=== PATIENT | female | born 1980 | race Caucasian/White ===

== ENCOUNTER 2019-03-12 11:30 | Outpatient (CLI) | payer OTHER ==
[~2019-03-12] VITALS: Ht 157.5 cm; Wt 83.0 kg
[2019-03-12] MEDS ORDERED: ETON68IM3 SQ (15:35)
== END 2019-03-12 15:54 | disposition home or self-care (01) ==
LOC: PREOP 11:30 → EDUNIT# 14:30 → PREOP 15:54
PROVIDERS: ATTEND Urology
DX: Z01.818 Encounter for other preprocedural examination (principal)

== ENCOUNTER 2019-03-17 07:32 | Day surgery (SDC) | payer OTHER ==
[~2019-03-17] VITALS: Ht 157.5 cm; Wt 83.0 kg
[2019-03-17] VITALS (9 sets, daily range): BP systolic 92–120; BP diastolic 54–85
[~2019-03-17 07:32] MED LIST: ETON68IM3 SQ
--- OUTSIDE RECORDS SUMMARY | 2019-03-17 07:37 | XMS REPORT | Clinical Summary ---
Author Author Admin, DIMAS Organization [facility] Address Unknown Phone Unavailable Allergies, Adverse Reactions, Alerts Allergy Name Reaction Description Start Date Severity Status Provider AMPICILLIN Critical Active Jud Baez TORADOL Critical Active Jud Baez ROCEPHIN Critical Active Chandan Del Valle DO SULFA Critical Active Chandan Del Valle DO IBUPROFEN Critical Active Chandan Del Valle DO ASPIRIN Critical Active Chandan Del Valle DO Conditions or Problems Problem Name Problem Code Onset Date Status Entry Date Provider Comment Standard Description Annotate FH DIABETES V18.0 Resolved Francisco Javier Wang MD Family history of diabetes mellitus FH DEPRESSION V17.0 Resolved Francisco Javier Wang MD Family history of psychiatric condition FREQUENCY, URINARY 788.41 Resolved Francisco Javier Wang MD Urinary frequency DYSURIA 788.1 Resolved Francisco Javier Wang MD Dysuria URINARY TRACT INFECTION, ACUTE 599.0 Resolved Francisco Javier Wang MD Urinary tract infection, site not specified HEADACHE, CHRONIC 784.0 Active Francisco Javier Wang MD Headache ACUTE PHARYNGITIS 462 Resolved Francisco Javier Wang MD Acute pharyngitis CANDIDIASIS, VAGINAL 112.1 Resolved Francisco Javier Wang MD Candidiasis of vulva and vagina DIETARY SURVEILLANCE AND COUNSELING V65.3 Active Tiffanie MILES Dietary surveillance and counseling EXCERCISE COUNSELING V65.41 Active Tiffanie MILES Exercise counseling DYSURIA 788.1 Resolved Francisco Javier Wang MD Dysuria ABSCESS, TOOTH 522.5 Resolved Francisco Javier Wang MD Periapical abscess without sinus Abdominal pain, generalized 789.07 Active Francisco Javier Wang MD Abdominal pain, generalized FH DIABETES ICD-V18.0 Inactive Francisco Javier Wang MD FH DEPRESSION ICD-V17.0 Inactive Francisco Javier Wang MD FREQUENCY, URINARY ICD-788.41 Inactive Francisco Javier Wang MD DYSURIA ICD-788.1 Inactive Francisco Javier Wang MD 09/08 URINARY TRACT INFECTION, ACUTE ICD-599.0 Inactive Francisco Javier Wang MD ACUTE PHARYNGITIS ICD-462 Inactive Francisco Javier Wang MD CANDIDIASIS, VAGINAL ICD-112.1 Inactive Francisco Javier Wang MD DYSURIA ICD-788.1 Inactive Francisco Javier Wang MD 07/07 ABSCESS, TOOTH ICD-522.5 Inactive Francisco Javier Wang MD Medication List Medication Instructions Start Date Stop Date Generic Name NDC Status Provider Patient Instruction REGLAN 10 MG TAB 1 po TID PRN Nausea METOCLOPRAMIDE HCL 11194377268 Active Francisco Javier Wang MD Active NEXPLANON 68 MG IMPL ETONOGESTREL 21093129094 Active Francisco Javier Wang MD Active CLINDAMYCIN HCL 300 MG CAPS TAKE ONE CAPSULE BY MOUTH 4 TIMES A DAILY FOR 10 DAYS CLINDAMYCIN HCL 74142966425 No Longer Active Francisco Javier Wang MD Active HYDROCODONE-ACETAMINOPHEN 5-325 MG TABS 1 po q 4hr PRN Pain HYDROCODONE-ACETAMINOPHEN 43115429890 Active Alphonse Alvarez MD Active PHENTERMINE HCL 37.5 MG TABS take one tab po daily PHENTERMINE HCL 88920664603 No Longer Active Alphonse Alvarez MD Active AZITHROMYCIN 250 MG TABS take 2 tabs po day one then 1 tab po days 2-5 12/30 AZITHROMYCIN 70665490649 No Longer Active Tiffanie Love PA Active FLUCONAZOLE 150 MG TABS take one tab po daily x 1 FLUCONAZOLE 52246475430 No Longer Active Tiffanie Love PA Active CIPROFLOXACIN HCL 250 MG TABS take one tab po bid x 7 days 09/08 CIPROFLOXACIN HCL 35365626164 No Longer Active Francisco Javier Wang MD Active FLUCONAZOLE 150 MG TABS take one tab po daily x 1 FLUCONAZOLE 66287416812 No Longer Active Francisco Javier Wang MD Active CIPRO 500 MG TAB 1 tablet by mouth twice daily CIPROFLOXACIN HCL 43239844403 No Longer Active Tiffanie Love PA Active CIPRO 500 MG TAB 1 tablet by mouth twice daily CIPRO 500 MG TAB 965534 CIPROFLOXACIN HCL Inactive FLUCONAZOLE 150 MG TABS take one tab po daily x 1 FLUCONAZOLE 150 MG TABS 636674 FLUCONAZOLE Inactive CIPROFLOXACIN HCL 250 MG TABS take one tab po bid x 7 days 09/08 CIPROFLOXACIN HCL 250 MG TABS 964673 CIPROFLOXACIN HCL Inactive FLUCONAZOLE 150 MG TABS take one tab po daily x 1 FLUCONAZOLE 150 MG TABS 191637 FLUCONAZOLE Inactive AZITHROMYCIN 250 MG TABS take 2 tabs po day one then 1 tab po days 2-5 12/30 AZITHROMYCIN 250 MG TABS 6966096 AZITHROMYCIN Inactive PHENTERMINE HCL 37.5 MG TABS take one tab po daily PHENTERMINE HCL 37.5 MG TABS 384190 PHENTERMINE HCL Inactive CLINDAMYCIN HCL 300 MG CAPS TAKE ONE CAPSULE BY MOUTH 4 TIMES A DAILY FOR 10 DAYS CLINDAMYCIN HCL 300 MG CAPS 075922 CLINDAMYCIN HCL Inactive Vital Signs Date Name Value Unit Range Description blood pressure, diastolic - 8462-4 95 mm[Hg] BP plummer blood pressure, systolic - 8480-6 137 mm[Hg] BP sys height E&M - 8302-2 62 [in_us] Bdy height pulse rate E&M - 8867-4 74 /min Heart rate temperature E&M 98.8 [degF] Body temperature weight E&M - 3141-9 189.31 [lb_av] Weight Measured blood pressure, diastolic - 8462-4 84 mm[Hg] BP plummer blood pressure, systolic - 8480-6 145 mm[Hg] BP sys height E&M - 8302-2 62 [in_us] Bdy height pulse rate E&M - 8867-4 105 /min Heart rate temperature E&M 99.1 [degF] Body temperature weight E&M - 3141-9 187 [lb_av] Weight Measured Encounters Code Encounter Date Provider Facility CPT-83225 Level 3 Est. Patient 11:19:23 CDT Francisco Javier Wang MD [facility] CPT-75538 Level 3 Est. Patient 09:36:55 CDT Alphonse Alvarez MD [facility] CPT-49123 Level 3 Est. Patient 09:05:05 CDT Tiffanie Love [facility] CPT-76734 Level 3 Est. Patient 09:54:44 WEB PRODUCTION MANAGER Tiffanie Love [facility] CPT-23054 Level 3 Est. Patient 14:27:49 CDT Francisco Javier Wang MD [facility] CPT-98001 Level 3 Est. Patient 11:21:54 CDT Tiffanie Love [facility] CPT-42472 Level 3 Est. Patient 15:49:41 WEB PRODUCTION MANAGER Chandan Del Valle DO [facility] Procedures Code Procedure Name Date Entry Date Standard Description CPT-96957 Urine Dip (Floor Use Only) 09:54:44 WEB PRODUCTION MANAGER CPT-93070 Urine Dip (Floor Use Only) 15:46:19 CDT
--- OUTSIDE RECORDS SUMMARY | 2019-03-17 07:37 | XMS REPORT | Clinical Summary ---
Author Author Admin, DIMAS Organization [facility] Address Unknown Phone Unavailable Allergies, Adverse Reactions, Alerts Allergy Name Reaction Description Start Date Severity Status Provider AMPICILLIN Critical Active Jud Baez TORADOL Critical Active Jud Baez ROCEPHIN Critical Active Chandan Del Valle DO SULFA Critical Active Chandan Echevarria Eligio DO IBUPROFEN Critical Active Chandan Del Valle [...] 1 po TID PRN Nausea METOCLOPRAMIDE HCL 73103368859 Active Francisco Javier Wang MD Active NEXPLANON 68 MG IMPL ETONOGESTREL 55831669518 Active Francisco Javier Wang MD Active CLINDAMYCIN HCL 300 MG CAPS TAKE ONE CAPSULE BY MOUTH 4 TIMES A DAILY FOR 10 DAYS CLINDAMYCIN HCL 15460455651 No Longer Active Francisco Javier Wang MD Active HYDROCODONE-ACETAMINOPHEN 5-325 MG TABS 1 po q 4hr PRN Pain HYDROCODONE-ACETAMINOPHEN 63407877411 Active Alphonse Alvarez MD Active PHENTERMINE HCL 37.5 MG TABS take one tab po daily PHENTERMINE HCL 61325256846 No Longer Active Alphonse Alvarez MD Active AZITHROMYCIN 250 MG TABS take 2 tabs po day one then 1 tab po days 2-5 12/30 AZITHROMYCIN 73847144149 No Longer Active Tiffanie Love PA Active FLUCONAZOLE 150 MG TABS take one tab po daily x 1 FLUCONAZOLE 77088926518 No Longer Active Tiffanie Love PA Active CIPROFLOXACIN HCL 250 MG TABS take one tab po bid x 7 days 09/08 CIPROFLOXACIN HCL 37982663422 No Longer Active Francisco Javier Wang MD Active FLUCONAZOLE 150 MG TABS take one tab po daily x 1 FLUCONAZOLE 59399518661 No Longer Active Francisco Javier Wang MD Active CIPRO 500 MG TAB 1 tablet by mouth twice daily CIPROFLOXACIN HCL 85470535616 No Longer Active Tiffanie Love PA Active CIPRO 500 MG TAB 1 tablet by mouth twice daily CIPRO 500 MG TAB 114219 CIPROFLOXACIN HCL Inactive FLUCONAZOLE 150 MG TABS take one tab po daily x 1 FLUCONAZOLE 150 MG TABS 499657 FLUCONAZOLE Inactive CIPROFLOXACIN HCL 250 MG TABS take one tab po bid x 7 days 09/08 CIPROFLOXACIN HCL 250 MG TABS 266359 CIPROFLOXACIN HCL Inactive FLUCONAZOLE 150 MG TABS take one tab po daily x 1 FLUCONAZOLE 150 MG TABS 166138 FLUCONAZOLE Inactive AZITHROMYCIN 250 MG TABS take 2 tabs po day one then 1 tab po days 2-5 12/30 AZITHROMYCIN 250 MG TABS 4914148 AZITHROMYCIN Inactive PHENTERMINE HCL 37.5 MG TABS take one tab po daily PHENTERMINE HCL 37.5 MG TABS 961488 PHENTERMINE HCL Inactive CLINDAMYCIN HCL 300 MG CAPS TAKE ONE CAPSULE BY MOUTH 4 TIMES A DAILY FOR 10 DAYS CLINDAMYCIN HCL 300 MG CAPS 101860 CLINDAMYCIN HCL Inactive Vital Signs Date Name [...] Measured Encounters Code Encounter Date Provider Facility CPT-70716 Level 3 Est. Patient 11:19:23 CDT Francisco Javier Wang MD [facility] CPT-74703 Level 3 Est. Patient 09:36:55 CDT Alphonse Alvarez MD [facility] CPT-85540 Level 3 Est. Patient 09:05:05 CDT Tiffanie Love [facility] CPT-03394 Level 3 Est. Patient 09:54:44 RUBBER PRESS TENDER Tiffanie Love [facility] CPT-76138 Level 3 Est. Patient 14:27:49 CDT Francisco Javier Wang MD [facility] CPT-96133 Level 3 Est. Patient 11:21:54 CDT Tiffanie Love [facility] CPT-70935 Level 3 Est. Patient 15:49:41 RUBBER PRESS TENDER Chandan Del Valle DO [facility] Procedures Code Procedure Name Date Entry Date Standard Description CPT-79462 Urine Dip (Floor Use Only) 09:54:44 RUBBER PRESS TENDER CPT-08592 Urine Dip (Floor Use Only) 15:46:19 CDT
--- NOTE | 2019-03-17 07:50 | Progress Note-Pre Operative ---
Pre-Operative Progress Note H&P Reviewed The H&P was reviewed, patient examined and no changes noted. Date Seen by Provider: March 17, 2019 Time Seen by Provider: 07:50 Date H&P Reviewed: March 17, 2019 Time H&P Reviewed: 07:50 Pre-Operative Diagnosis: RT URETERAL AND RENAL STONES NELL OTERO MD March 17, 2019 07:50
[2019-03-17] MEDS ORDERED: LEVOFLOXACIN 250 MG/50 ML IVPB 50 ML ONE (07:56)
[2019-03-17] MEDS: LACTATED RINGERS 1,000 ML IV PRN ×2 (08:00→10:12)
[2019-03-17] MEDS ORDERED: LEVOFLOXACIN 250 MG/50 ML IVPB 50 ML IV ONE (08:15)
[2019-03-17] MEDS ORDERED: CATHETER FLUSH 10 ML SYR IV PRN (08:15)
[2019-03-17] MEDS ORDERED: LIDOCAINE PF 2% 5 ML (XYLOCAINE) VIAL ONE (08:29)
[2019-03-17] MEDS ORDERED: DEXAMETHASONE 10 MG/ML (DECADRON) 1 ML VIAL ONE (08:29)
[2019-03-17] MEDS ORDERED: proPOfol 200 MG/20 ML (DIPRIVAN) VIAL IV ONE (08:29)
[2019-03-17] MEDS ORDERED: MIDAZOLAM 2 MG/2 ML (VERSED) VIAL ONE (08:29)
[2019-03-17] MEDS ORDERED: ONDANSETRON 4 MG/2 ML (SDV) Z0FRAN ONE ×2 (08:29→11:57)
[2019-03-17] MEDS ORDERED: SEVOFLURANE (ULTANE) 15 ML INHAL SOLN ONE (08:29)
[2019-03-17] MEDS ORDERED: fentaNYL INJECTION 100 MCG/2 ML AMP ONE (08:29)
--- NOTE | 2019-03-17 09:15 | Diagnostic Imaging Report ---
INDICATION: Flank pain, followup renal stones. COMPARISON: None available. FINDINGS: There is a 1.3 cm stone projected over the lower pole of the right kidney. Additional more central 8 mm stone is present near the lower pole of the right kidney, could be within the renal hilum. There are a few tiny 0.3 cm mineralization overlying the left renal fossa. Scattered pelvic phleboliths are noted. Nonobstructive bowel gas pattern. Normal regional skeleton. IMPRESSION: Probable bilateral renal stones, largest measuring up to 1.3 cm on the right. If there is concern for obstruction, CT of the abdomen and pelvis without contrast is advised for further assessment. Dictated by: Dictated on workstation # [id number]
--- NOTE | 2019-03-17 10:27 | Progress Note-Post Operative ---
Post-Operative Progess Note Surgeon (s)/Supervisor Type Photography (s) Surgeon NELL OTERO MD Supervisor Type Photography: NONE Pre-Operative Diagnosis RT URETERAL AND RENAL STONES Post-Operative Diagnosis SAME Procedure & Operative Findings Date of Procedure 03/17/19 Procedure Performed/Findings RT ESWL FOR URETERAL STONE Anesthesia Type GENERAL Estimated Blood Loss Estimated blood loss (mL): NONE Specimens/Packing Specimens Removed NONE Packing: NONE NELL OTERO MD March 17, 2019 10:27
--- NOTE | 2019-03-17 10:29 | Discharge Inst-Urology ---
Discharge Inst-Urology Discharge Medications New, Converted, or Re-newed RX: RX on Chart Patient Instructions/Follow Up Plan Please make appointment to been seen in office in 2 weeks. KUB prior to it KUB on way home Post ESWL instructions Increase oral fluids for 48 hours and then as needed. Diet and Activity as tolerated. If questions or concerns contact your physician Or seek help at emergency department. NELL OTERO MD March 17, 2019 10:29
[2019-03-17] MEDS ORDERED: FUROSEMIDE 40 MG/4 ML INJ (LASIX) ONE (11:29)
[2019-03-17] MEDS ORDERED: HYDR-3870 PO (12:13)
[2019-03-17] MEDS ORDERED: TAMS0.4C98 PO (12:13)
[2019-03-17] MEDS ORDERED: NITR-65 PO (12:13)
--- NOTE | 2019-03-17 12:21 | Anesthesia-General Post-Op ---
General Patient Condition Mental Status/LOC: Same as Preop Cardiovascular: Satisfactory Nausea/Vomiting: Absent Respiratory: Satisfactory Pain: Controlled Complications: Absent Post Op Complications Complications None Follow Up Care/Instructions Patient Instructions None needed. Anesthesia/Patient Condition Patient Condition Patient is doing well, no complaints, stable vital signs, no apparent adverse anesthesia problems. No complications reported per nursing. DANIELLE MAC CRNA March 17, 2019 12:21
[2019-03-17] MEDS ORDERED: ONDANSETRON 4 MG/2 ML (SDV) Z0FRAN IVP PRN (12:45)
--- NOTE | 2019-03-17 14:21 | Diagnostic Imaging Report ---
EXAMINATION: Supine abdomen at 1:00 p.m. INDICATION: Post ESWL. Two views were obtained. FINDINGS: The exam performed earlier today at 7:59 a.m. noted a 13 mm and 8 MM calcification overlying the right kidney. In the interval since the prior exam, the larger of the two calcifications has been fragmented. The calcific fragments continues to overlie the right renal contour. The more medial and smaller of the two calcific fragments is unchanged in appearance. The 3 mm calcific density overlying the left kidney seen previously is again evident and no different. The suspected phleboliths low in the pelvis are also unchanged. IMPRESSION: There has been fragmentation of the larger of the two calculi overlying the right kidney. The overall appearance of the abdomen has not changed significantly otherwise. Dictated by: Dictated on workstation # [id number]
--- NOTE | 2019-04-03 18:59 | OPERATIVE REPORT ---
DATE OF SERVICE: 03/17/2019 PREOPERATIVE DIAGNOSES: 1. Right ureteropelvic junction stone. 2. Right lower pole renal stone. POSTOPERATIVE DIAGNOSES: 1. Right ureteropelvic junction stone. 2. Right lower pole renal stone. OPERATION PERFORMED: Right ESWL of the ureteropelvic junction stone. SURGEON: Mau Otero MD. ANESTHESIA: General. COMPLICATIONS: None. DESCRIPTION OF PROCEDURE: Under satisfactory general anesthesia, the patient in supine position on the ESWL table, we localized the right UPJ stone. Delivered shocks at kV of 4. A total of 3000 shocks fragmented the stone well. We did not address the lower pole stone because we want to delivere as much shocks to the other stone lower pole stone and also her insurance does not allow more than one stone to be blasted in a year. The patient received 40 mg of Lasix, 30 mg of Toradol IV at the end of procedure. She tolerated the procedure and anesthesia well and was sent to recovery room in stable condition. Job ID: [id number] DocumentID: [id number] Dictated Date: 04/03/2019 09:25:24 Hotel Or Motel Receptionist Date: 04/03/2019 18:59:26 Dictated By: MAU OTERO MD
== END 2019-03-17 13:15 | disposition home or self-care (01) ==
LOC: SDC 07:32
PROVIDERS: ATTEND Urology
DX: N20.2 Calculus of kidney with calculus of ureter (principal); M35.00 Sjogren syndrome, unspecified; G43.909 Migraine, unspecified, not intractable, without status migrainosus; Z79.899 Other long term (current) drug therapy
CPT/HCPCS: 74018; 84703; 87081

== ENCOUNTER → 2019-04-21 | Outpatient (CLI) | payer OTHER ==
[~2019-04-21] VITALS: Ht 157.5 cm; Wt 83.0 kg
[~2019-04-21] MED LIST changes: +CETI10TA17 PO; +HYDR-3870 PO; +NITR-65 PO; +TAMS0.4C98 PO
== END | disposition home or self-care (01) ==
LOC: PREOP 13:10
PROVIDERS: ATTEND Urology
DX: Z01.818 Encounter for other preprocedural examination (principal)

== ENCOUNTER 2019-04-22 07:02 | Day surgery (SDC) | payer OTHER ==
[~2019-04-22] VITALS: Ht 157.5 cm; Wt 86.2 kg
[2019-04-22] VITALS (10 sets, daily range): BP systolic 95–119; BP diastolic 58–68
--- NOTE | 2019-04-22 07:03 | Progress Note-Pre Operative ---
Pre-Operative Progress Note H&P Reviewed The H&P was reviewed, patient examined and no changes noted. Date Seen by Provider: Apr 22, 2019 Time Seen by Provider: 07:32 Date H&P Reviewed: Apr 22, 2019 Time H&P Reviewed: 07:32 Pre-Operative Diagnosis: RT PROXIMAL URETERAL (2) AND RENAL (1) STONES NELL OTERO MD Apr 22, 2019 07:03
--- OUTSIDE RECORDS SUMMARY | 2019-04-22 07:10 | XMS REPORT | Continuity of Care Document ---
Author Organization Unknown Address Unknown Allergies Active Description Code Type Severity Reaction Onset Reported/Identified Relationship to Patient Clinical Status Yes ASPIRIN ASPIRIN SEVERE Yes CEFTRIAXONE CEFTRIAXONE SEVERE Yes IBUPROFEN IBUPROFEN SEVERE Yes PAIN RELIEVER PAIN RELIEVER SEVERE Yes PENICILLIN G POTASSIUM PENICILLIN G POTASSI SEVERE Yes ASPIRIN SEVERE DERMATOLOGICAL - TESHA Yes ASPIRIN SEVERE SEVERE Yes CEFTRIAXONE SEVERE DERMATOLOGICAL - TESHA Yes CEFTRIAXONE SEVERE SEVERE Yes IBUPROFEN SEVERE DERMATOLOGICAL - TESHA Yes IBUPROFEN SEVERE SEVERE Yes PAIN RELIEVER SEVERE DERMATOLOGICAL - TESHA Yes PAIN RELIEVER SEVERE SEVERE Yes PENICILLIN G POTASSIUM SEVERE SEVERE Yes PENICILLIN G POTASSIUM SEVERE SWOLLEN LIPS Yes aspirin [id number] Drug Allergy Severe HIVES, LIP SWEL 03/12/2019 Yes ibuprofen [id number] Drug Allergy Severe HIVES, LIP SWEL 03/12/2019 Yes Sulfa (Sulfonamide Antibiotics) Z834265374 Drug Allergy Moderate N/V, HIVES 03/12/2019 Yes ceftriaxone X976088925 Drug Allergy Mild N/V 03/12/2019 Yes Penicillins Z042638866 Drug Allergy Mild GI UPSET, N/V 03/12/2019 Yes Cephalosporins Q355874356 Drug Allergy Unknown N/A 03/12/2019 Medications There is no data. Problems Date Dx Coded Attending Type Code Diagnosis Diagnosed By 03/07/2019 Richard Lindsey 592.1 CALCULUS OF URETER 03/07/2019 Richard Lindsey 599.0 URINARY TRACT INFECTION, SITE NOT SPECIFIED 03/07/2019 Richard Lindsey N20.1 CALCULUS OF URETER 03/07/2019 Richard Lindsey N39.0 URINARY TRACT INFECTION, SITE NOT SPECIFIED 03/12/2019 MAU OTERO MD Ot Z01.818 ENCOUNTER FOR OTHER PREPROCEDURAL EXAMIN 04/07/2019 MAU OTERO MD Ot G43.909 MIGRAINE, UNSP, NOT INTRACTABLE, WITHOUT 04/07/2019 MAU OTERO MD Ot M35.00 SICCA SYNDROME, UNSPECIFIED 04/07/2019 MAU OTERO MD Ot N20.2 CALCULUS OF KIDNEY WITH CALCULUS OF URET 04/07/2019 MAU OTERO MD Ot Z79.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 Results Test Result Range Sed Rate - 11/28/16 12:19 Sed Rate 27 mm/hr 9-15 Urine Culture - 03/07/19 18:20 PRELIM CULTURE RESULTS 20,000-50,000 Gram Positive Mixed Monique. FINAL CULTURE RESULTS 20,000-50,000 Mixed Monique [id number] Skin Contaminant [id number] Further Workup done CULTURE SOURCE voided urine/er collection Methicillin resistant Staphylococcus aureus (MRSA) screening culture - 03/17/19 07:50 Methicillin resistant Staphylococcus aureus (MRSA) screening culture NEG NRG Stone Analysis - 04/10/19 08:38 Stone Analysis Sent to Reference Lab Encounters ACCT No. Visit Date/Time Discharge Status Pt. Type Provider Facility Loc./Unit Complaint [id number] 04/10/2019 08:24:00 04/10/2019 23:59:00 DIS Outpatient Mau Otero [id number] 03/31/2019 14:09:00 03/31/2019 23:59:00 DIS Outpatient Mau Otero [id number] 03/11/2019 11:04:00 03/11/2019 23:59:00 DIS Outpatient Mau Otero [id number] 03/07/2019 18:07:00 03/07/2019 19:58:00 DIS Outpatient [facility] ER [id number] 08/12/2018 12:25:00 08/12/2018 23:59:00 DIS Outpatient SELF, PHY [id number] 08/13/2017 08:53:00 08/13/2017 23:59:00 DIS Outpatient SELF, PHY [id number] 11/29/2016 08:00:00 11/29/2016 23:59:00 DIS Outpatient UNLISTED, UNLISTED [id number] 11/28/2016 12:11:00 11/28/2016 23:59:00 DIS Outpatient UNLISTED, UNLISTED [id number] 08/27/2016 12:57:00 08/27/2016 23:59:00 DIS Outpatient SELF, PHY [id number] 03/17/2019 07:32:00 03/17/2019 13:15:00 DIS Outpatient MAU OTERO MD [facility] RIGHT UPPER URETERAL AND RENAL STONE [id number] 03/12/2019 11:30:00 03/12/2019 15:54:00 DIS Outpatient [facility]U [facility]O [facility] PREOP RIGHT ESWL [id number] 03/07/2019 18:07:00 Document Registration
[2019-04-22] MEDS ORDERED: LEVOFLOXACIN 500 MG/100 ML IV 100 ML ONE (07:35)
--- NOTE | 2019-04-22 07:35 | Progress Note-Post Operative ---
Post-Operative Progess Note Surgeon (s)/Warehouse Administrative Assistant (s) Surgeon NELL OTERO MD Warehouse Administrative Assistant: NONE Pre-Operative Diagnosis RT PROXIMAL URETERAL (2) AND RENAL (1) STONES Post-Operative Diagnosis RT RENAL STONES (3) Procedure & Operative Findings Date of Procedure 04/22/19 Procedure Performed/Findings CYSTOSCOPY AND INSERTION OF RT URETERAL STENT Anesthesia Type GENERAL Estimated Blood Loss Estimated blood loss (mL): NEGLIGIBLE Specimens/Packing Specimens Removed NONE Packing: NONE NELL OTERO MD Apr 22, 2019 07:35
--- NOTE | 2019-04-22 07:41 | Diagnostic Imaging Report ---
INDICATION: Urinary tract stones. FINDINGS: A single view of the abdomen shows several 7 mm stones in the mid kidney on the right. There is a 5 mm stone in the lower pole of the right kidney. The stone that was seen in the ureteropelvic junction on the study from 03/17/2019 is now more laterally located. There are three calcifications in the pelvis consistent with phleboliths which are unchanged in appearance. There may be punctate calcifications in the left kidney. The bowel gas pattern is within normal limits. IMPRESSION: The calculus that was previously at the ureteropelvic junction on the right is now more laterally located in the right mid kidney. Dictated by: Dictated on workstation # [id number]
[2019-04-22] MEDS ORDERED: LACTATED RINGERS 1,000 ML IV PRN (07:50)
[2019-04-22] MEDS ORDERED: LEVOFLOXACIN 500 MG/100 ML IV 100 ML IV ONE (08:00)
[2019-04-22] MEDS ORDERED: CATHETER FLUSH 10 ML SYR IV PRN (08:15)
[2019-04-22] MEDS ORDERED: SEVOFLURANE (ULTANE) 15 ML INHAL SOLN ONE (08:28)
[2019-04-22] MEDS ORDERED: LIDOCAINE PF 2% 5 ML (XYLOCAINE) VIAL ONE (08:28)
[2019-04-22] MEDS ORDERED: DEXAMETHASONE 10 MG/ML (DECADRON) 1 ML VIAL ONE (08:28)
[2019-04-22] MEDS ORDERED: MIDAZOLAM 2 MG/2 ML (VERSED) VIAL ONE (08:28)
[2019-04-22] MEDS ORDERED: GLYCOPYRROLATE 0.2 MG/ML (ROBINUL) 2 ML VIAL ONE (08:28)
[2019-04-22] MEDS ORDERED: NEOSTIGMINE 1 MG/ML 5 ML SYRINGE ONE (08:28)
[2019-04-22] MEDS ORDERED: ONDANSETRON 4 MG/2 ML (SDV) Z0FRAN ONE (08:28)
[2019-04-22] MEDS ORDERED: fentaNYL INJECTION 100 MCG/2 ML AMP ONE (08:28)
[2019-04-22] MEDS ORDERED: proPOfol 200 MG/20 ML (DIPRIVAN) VIAL IV ONE (08:28)
[2019-04-22] MEDS ORDERED: ROCURONIUM 10 MG/ML 5 ML SYRINGE IV ONE (08:28)
--- NOTE | 2019-04-22 08:35 | NUR ---
THIS RN SPOKE WITH CASSY VALERA CRNA AND INFORMED OF PATIENT'S ALCOHOL AND MARIJUANA USE. CASSY GAVE VERBAL ORDER TO OBTAIN URNIE DRUG SCREEN.
--- NOTE | 2019-04-22 09:10 | Discharge Inst-Urology ---
Discharge Inst-Urology Patient Instructions/Follow Up Plan Please make appointment to been seen in office next Saturday 04/28 Resume home Levaquin starting tomorrow Increase oral fluids for 48 hours and then as needed. Diet and Activity as tolerated. If questions or concerns contact your physician Or seek help at emergency department. NELL OTERO MD Apr 22, 2019 09:10
[2019-04-22] MEDS ORDERED: morphine INJ 10 MG/ML 1ML (SYR OR VIAL) IVP ONE (09:15)
[2019-04-22] MEDS ORDERED: ONDANSETRON 4 MG/2 ML (SDV) Z0FRAN IVP PRN (09:15)
--- NOTE | 2019-04-22 13:31 | OPERATIVE REPORT ---
DATE OF SERVICE: 04/22/2019 PREOPERATIVE DIAGNOSES: Right proximal ureteral stones and right renal stone. POSTOPERATIVE DIAGNOSIS: Right renal stones x3. OPERATION PERFORMED: Cystoscopy and insertion of right double-J stent. SURGEON: Mau Otero MD ANESTHESIA: General. COMPLICATIONS: None. DESCRIPTION OF PROCEDURE: The KUB this morning showed two stones that were in the proximal right ureter by yesterday, moved back into the kidney. After satisfactory general anesthesia and the patient in the lithotomy position, genitalia were prepped and draped in the usual sterile fashion. Cystoscope was introduced and the bladder was examined. It was normal with clear effluxes. No foreign body, bladder tumor or stones visualized. Using the foroblique lens, I passed a 6-[id number] 26 cm double-J stent into the right ureteral orifice and guided fluoroscopically all the way to the right renal pelvis. The guidewire was removed and the stent was seen draining nicely, proximally, fluoroscopically and distally endoscopically. The bladder was evacuated and cystoscope was removed. The patient tolerated the procedure and anesthesia well and was sent to recovery room in stable condition. PLAN: I will see her back in a week at the office. We will give her the option of either flexible ureterolithotripsy at or else versus percutaneous nephrolithotripsy versus try again ESWL when the machine is here next week or after that. She has a stent now for protection anyway. Job ID: [id number] DocumentID: [id number] Dictated Date: 04/22/2019 09:13:11 Blocklayer Date: 04/22/2019 13:30:52 Dictated By: MAU OTERO MD
--- NOTE | 2019-04-22 14:01 | Anesthesia-General Post-Op ---
General Patient Condition Mental Status/LOC: Same as Preop Cardiovascular: Satisfactory Nausea/Vomiting: Absent Respiratory: Satisfactory Pain: Controlled Complications: Absent Post Op Complications Complications None Follow Up Care/Instructions Patient Instructions None needed. Anesthesia/Patient Condition Patient Condition Patient is doing well, no complaints, stable vital signs, no apparent adverse anesthesia problems. No complications reported per nursing. CASSY VALERA CRNA Apr 22, 2019 14:01
== END 2019-04-22 11:15 | disposition home or self-care (01) ==
LOC: SDC 07:02
PROVIDERS: ATTEND Urology
DX: N20.0 Calculus of kidney (principal); Z88.2 Allergy status to sulfonamides; Z88.1 Allergy status to other antibiotic agents; Z88.0 Allergy status to penicillin; M35.00 Sjogren syndrome, unspecified; G43.909 Migraine, unspecified, not intractable, without status migrainosus; Z79.899 Other long term (current) drug therapy
CPT/HCPCS: 74018; 84703; 87081

== ENCOUNTER 2019-05-26 09:15 | Outpatient (CLI) | payer OTHER ==
[~2019-05-26] VITALS: Ht 157.5 cm; Wt 86.2 kg
[2019-05-27] MEDS ORDERED: TAMS0.4C98 PO (09:33)
[2019-05-27] MEDS ORDERED: NITR-65 PO (09:33)
== END 2019-05-26 09:30 | disposition home or self-care (01) ==
LOC: PREOP 09:15
PROVIDERS: ATTEND Urology
DX: Z01.818 Encounter for other preprocedural examination (principal)

== ENCOUNTER → 2020-02-22 | Outpatient (CLI) | payer BC ==
[~2020-02-22] MED LIST changes: -TAMS0.4C98 PO; +TMSL.4C PO
--- NOTE | 2020-02-22 15:22 | Diagnostic Imaging Report ---
INDICATION: Right upper ureteral stone. COMPARISON: 05/27/2019. TECHNIQUE: Single radiograph of the abdomen dated 02/22/2020. FINDINGS: The previously noted right ureteral stent is no longer visualized. The majority of the calcifications overlying the right renal shadow on the prior exam are no longer visualized; however, a few small calcifications do persist overlying the right renal shadow with the largest measuring 4 mm. Multiple calcifications overlying the left renal shadow are again identified, particularly overlying the inferior pole of the left kidney. The largest measures nearly 6 mm. Three round calcifications overlying the right pelvis are unchanged from the prior exam. These are felt to relate to phleboliths. No definite additional calcifications overlying the expected course of the right ureter. Nonobstructive bowel gas pattern. No free air. No acute osseous abnormality. IMPRESSION: Calcifications overlying the bilateral renal shadows are felt to relate to renal calculi with the stone burden having significantly decreased on the right since the prior exam. Interval removal of the previously noted right ureteral stent. Dictated by: Dictated on workstation # [id number]
== END ==
LOC: RAD 14:40
PROVIDERS: ATTEND Urology
DX: N20.1 Calculus of ureter (principal)
CPT/HCPCS: 74018